=== PATIENT | male | born 1990 | race Caucasian/White ===

== ENCOUNTER 2019-02-01 15:19 | Emergency (ER) | payer SELFPAY ==
[2019-02-01 15:27] VITALS: BP 131/80
[2019-02-01] MEDS ORDERED: predniSONE TAB* 20 MG PO ONE (15:35)
--- NOTE | 2019-02-01 15:42 | UC ---
Allergic Reaction HPI - HPI Summary HPI Summary: was stung by bee 2 hours ago on R forearm and felt fine for first 1 1/2 hours, then started experiencing R sided facial swelling. has been stung as child and had allergic reaction and given epi-pen - but ran out years ago. he has been stung in past w/o reaction as well. took benadryl 50mg 1/2 hours ago. no SOB or diff swallowing. denies rash - History of Current Complaint Chief Complaint: UCAllergicReaction Stated Complaint: BEE STING Time Seen by Provider: 02/01/19 15:32 Hx Obtained From: Patient Onset/Duration: Sudden Onset Pain Intensity: 0 Character: Swelling Aggravating Factor(s): Nothing Alleviating Factor(s): Nothing Associated Signs And Symptoms: Negative: Chest Pain, Cough Wheezing, Lightheadedness, Nausea, Throat Tightening, Vomiting - Related Hx Possible Reaction To: Insect Prior Episode Dx as Allergic Reaction to: Same/Other: Bee - Allergies/Home Medications Allergies/Adverse Reactions: Allergies Allergy/AdvReac Type Severity Reaction Status Date / Time Penicillins Allergy Severe Nausea And Verified 02/01/19 15:27 Vomiting Home Medications: Home Medications Cyclobenzaprine TAB* [Flexeril 10 MG TAB*] 10 mg PO DAILY 02/01/19 [History Confirmed 02/01/19] diphenhydrAMINE HCl [Benadryl Allergy] 25 mg PO Q6HR 02/01/19 [History Confirmed 02/01/19] PMH/Surg Hx/FS Hx/Imm Hx Previously Healthy: Yes Other History Of: Negative For: HIV, Hepatitis B, Hepatitis C, Anticoagulant Therapy - Surgical History Surgical History: Yes Surgery Procedure, Year, and Place: right middle finger reconstruction. Appendectomy 02/05/16 - Family History Known Family History: Positive: Cardiac Disease, Hypertension - Social History Occupation: Employed Full-time Lives: With Family Alcohol Use: None Substance Use Type: None Smoking Status (MU): Heavy Every Day Tobacco Smoker Type: Cigarettes Amount Used/How Often: 1/2 PPD Length of Time of Smoking/Using Tobacco: 8 YEARS Have You Smoked in the Last Year: Yes Cessation Counseling: Patient Advised to Stop Review of Systems All Other Systems Reviewed And Are Negative: Yes Constitutional: Positive: Negative. Negative: Fever, Chills Skin: Negative: Rash Respiratory: Negative: Shortness Of Breath, Cough Cardiovascular: Negative: Palpitations, Chest Pain Gastrointestinal: Positive: Negative Neurological: Positive: Negative. Negative: Headache, Weakness, Numbness Psychological: Positive: Negative Is Patient Immunocompromised?: No Physical Exam Triage Information Reviewed: Yes Appearance: Well-Appearing, No Pain Distress, Well-Nourished Vital Signs: Initial Vital Signs Temp 97 F 02/01/19 15:23 Pulse 72 02/01/19 15:23 Resp 12 02/01/19 15:23 BP 131/80 02/01/19 15:23 Pulse Ox 99 02/01/19 15:23 Vital Signs Reviewed: Yes Eye Exam: Normal Eyes: Positive: Conjunctiva Clear ENT: Positive: Pharynx normal Respiratory Exam: Normal Respiratory: Positive: Lungs clear Cardiovascular Exam: Normal Cardiovascular: Positive: Pulses Normal Neurological Exam: Normal Neurological: Positive: Alert Psychological Exam: Normal Psychological: Positive: Normal Response To Family Skin: Positive: Other - no rash, there is small red area R forearm site of bee sting Re-Evaluation - Re-Evaluation First Eval Re-Evaluation Time: 16:00 - swelling resolving L face, no new symps, 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 Change: Improved Allergic Reaction Course/Dx - Differential Dx/Diagnosis Provider Diagnosis: Allergic reaction to bee sting Discharge - Sign-Out/Discharge Documenting (check all that apply): Patient Departure All imaging exams completed and their final reports reviewed: No Studies - Discharge Plan Condition: Improved Disposition: HOME Prescriptions: EPINEPHrine [Epinephrine] 0.15 mg IJ ONCE PRN #1 [id number] PRN Reason: Allergy Symptoms predniSONE [Prednisone 20 MG TAB] 2 tab PO DAILY #4 tablet Patient Education Materials: General Allergic Reaction (ED) Referrals: No Primary Care Phys,NOPCP [Primary Care Provider] - Additional Instructions: use benadryl today as diretced start prednisone tomorrow (for 2 more days) Return if your symptoms worsen at anytime keep epi pen with you for bee stings - Billing Disposition and Condition Condition: IMPROVED Disposition: Home
== END 2019-02-01 16:43 | disposition home or self-care (01) ==
LOC: UCEAST 15:19
DX: T63.441A Toxic effect of venom of bees, accidental (unintentional), initial encounter (principal); Y92.9 Unspecified place or not applicable; F17.210 Nicotine dependence, cigarettes, uncomplicated; Z88.0 Allergy status to penicillin
CPT/HCPCS: 99212; G0463; J7512